=== PATIENT | male | born 1990 | race Caucasian/White ===

== ENCOUNTER 2019-02-17 14:03 | Emergency (ER) | payer OTHER ==
[2019-02-17 14:09] VITALS: BP 125/82
--- NOTE | 2019-02-17 14:10 | EDPHY ---
H & P Stated Complaint: back pain, sharp between shoulder blades Time Seen by Provider: 02/17/19 14:10 - Personal History Current Tetanus/Diphtheria Vaccine: Yes Current Tetanus Diphtheria and Acellular Pertussis (TDAP): Yes - Medical/Surgical History Hx Asthma: No Hx Chronic Respiratory Disease: No Hx Diabetes: No Hx Cardiac Disease: No Hx Renal Disease: No Hx Cirrhosis: No Hx Alcoholism: No Hx HIV/AIDS: No Hx Splenectomy or Spleen Trauma: No - Social History Smoking Status: Current every day smoker Constitutional: Initial Vital Signs Temperature (C) 37 C 02/17/19 14:05 Heart Rate 94 02/17/19 14:05 Respiratory Rate 14 02/17/19 14:05 Blood Pressure 125/82 H 02/17/19 14:05 O2 Sat (%) 97 02/17/19 14:05 O2 Delivery Mode Room Air Allergies/Adverse Reactions: No Known Allergies Allergy (Unverified 02/17/19 14:05) Home Medications: Medication Instructions Recorded Hydrocodone/APAP 5/325 [Chauvin 1 - 2 each PO Q4-6PRN PRN #10 tab 02/17/19 5/325] Ibuprofen [Motrin] 800 mg PO Q8 #20 tab 02/17/19 Medical Decision Making ED Course/Re-evaluation: CHIEF COMPLAINT: Upper back pain HISTORY OF PRESENT ILLNESS: The patient is a 28 y/o male complaining of upper back pain between his shoulder blades. The pain started as a mild cramp yesterday and has progressively worsened. Due to the pain he had difficulty getting out of bed today. Currently he is having a sharp pain between his shoulder blades. No fever , headache, body aches, lightheadedness, chest pain, heart palpitations, shortness of breath, cough, abdominal pain, urinary or bowel complaints, numbness, paresthesias. REVIEW OF SYSTEMS: A comprehensive 10 system review of systems is otherwise negative aside from elements mentioned in the history of present illness and medical decision making. PHYSICAL EXAM: HR, BP, O2 Sat, RR. Temp noted General Appearance: Alert, well hydrated, appropriate, and non-toxic appearing. Head: Atraumatic without scalp tenderness or obvious injury Eyes: Pupils equal, round, reactive to light and accommodation, EOMI, no trauma , no injection. Ears: Clear bilaterally, no perforation, normal landmarks Nose: Atraumatic, no rhinorrhea, clear. Throat: There is no erythema or exudates, no lesions, normal tonsils, mucus membranes moist. Neck: Supple, 2+ carotid upstroke, nontender, no lymphadenopathy. Respiratory: No retractions, no distress, no wheezes, and no accessory muscle use. Lungs are clear to auscultation bilaterally. Cardiovascular: Regular rate and rhythm, no murmurs, rubs, or gallops. Bilateral carotid, radial, dorsalis pedis, and posterior tibial pulses intact. Good capillary refill all extremities. Gastrointestinal: Abdomen is soft, nontender, non-distended, no masses, no rebound, no guarding, no peritoneal signs. Back: Left levator scapulae muscle tenderness to palpation. Musculoskeletal: Normal active ROM of all extremities, atraumatic. Neurological: Alert, appropriate, and interactive. The patient has normal DTRs and non-focal cranial nerves, motor, sensory, and cerebellar exam. Skin: No rashes, good turgor, no nodules on palpation. Past medical history: Denies Past surgical history: Denies Family history: Denies Social history: Lives in [place], single, employed DIAGNOSTICS/PROCEDURES/CRITICAL CARE TIME: Not indicated. DIFFERENTIAL DIAGNOSIS: The differential diagnosis for the patient's back pain included but was not limited to musculoskeletal pain, epidural abscess, herniated disk, spinal fracture, and intra-abdominal causes including urinary system. MEDICAL DECISION MAKING: The patient is a 28 y/o male presenting with worsening upper back pain between his shoulder blades. On exam he has left levator scapulae muscle tenderness to palpation. I suspect he has a muscle strain. Laboratory and imaging studies are not indicated. I have advised him to follow up with M[facility] Montoya regarding his pain. I have also prescribed him Motrin and Vicodin for the pain. Return precautions provided; patient is comfortable with this plan. Departure - Departure Disposition: Home, Routine, Self-Care Clinical Impression: Strain of left levator scapulae muscle Qualifiers: Encounter type: initial encounter Qualified Code(s): S46.812A - Strain of other muscles, fascia and tendons at shoulder and upper arm level, left arm, initial encounter Condition: Good Instructions: Musculoskeletal Pain (ED), Back Pain (ED) Additional Instructions: 1. Take Motrin and Vicodin as prescribed for pain. 2. Follow up with [facility] Chuckey for your left levator scapulae muscle strain. 3. Return to the emergency department for severe pain, fever, numbness, difficulty walking, change in location or nature of pain or other concerns. 4. Try using a heating pad. Referrals: [facility] [Outside] - As per Instructions Prescriptions: Hydrocodone/APAP 5/325 [Chauvin 5/325] 1 - 2 each PO Q4-6PRN PRN #10 tab PRN Reason: Pain, Moderate Ibuprofen [Motrin] 800 mg PO Q8 #20 tab Report Scribed for: Travon Rodríguez Report Scribed by: Verona Sharma Date of Report: 02/17/19 Time of Report: 14:17
== END 2019-02-17 14:43 | disposition home or self-care (01) ==
DX: S46.812A Strain of other muscles, fascia and tendons at shoulder and upper arm level, left arm, initial encounter (principal); X58.XXXA Exposure to other specified factors, initial encounter; Y99.9 Unspecified external cause status